=== PATIENT | female | born 1975 | race Caucasian/White ===

== ENCOUNTER 2016-12-27 18:43 | Observation (INO) | payer OTHER ==
[~2016-12-27] VITALS: Ht 167.6 cm; Wt 135.8 kg
[2016-12-27] VITALS (72 sets, daily range): BP systolic 128–156; BP diastolic 68–94; PULSE 62–65; TEMP 97.8; O2SAT 92–99
[~2016-12-27 18:43] MED LIST: AMOXICILLIN 8751 TAB PO; NAPROXEN500 M1 PO; NORCO 325 MG-51 TAB PO
[2016-12-27 20:16] LABS: BASO # 0.1 (0.0-0.2); BASO % 0.6 % (0.0-2.0); EOS # 0.2 (0.0-0.7); EOS % 2.3 % (0-4.0); GRAN # 5.8 (1.4-6.5); GRAN % 65.3 % (42.2-75.2); HEMATOCRIT 38.5 % (37.0-47.0); HEMOGLOBIN 12.7 g/dl (12.5-16.0); LYMPH # 2.3 (1.2-3.4); LYMPH % 25.3 % (20.0-51.0); MEAN CELL VOLUME 83 fl (80.0-100.0); MEAN CORPUSCULAR HEMOGLOBIN 27 pg (27.0-31.0); MEAN CORPUSCULAR HGB CONC 33 g/dl (33.0-37.0); MEAN PLATELET VOLUME 10.8 fl (7.4-10.4); MONO # 0.6 (0.1-0.6); MONO % 6.1 % (1.7-9.3); PLATELET COUNT 227 K/mm3 (130-400); RED BLOOD COUNT 4.63 M/mm3 (4.10-5.30); REDCELL DISTRIBUTION WIDTH-CV 13.5 % (11.5-14.5)
[2016-12-27 20:27] LABS: ADJUSTED CALCIUM 9.4 mg/dL (8.4-10.2); ALANINE AMINOTRANSFERASE 24 U/L (9-52); ALBUMIN 4.2 gm/dL (3.5-5.0); ALKALINE PHOSPHATASE 69 U/L (50-136); ANION GAP 10 mmol/L (7-16); BILIRUBIN,TOTAL 0.5 mg/dL (0.0-1.0); BLOOD UREA NITROGEN 17 mg/dL (7-17); CALCIUM 9.6 mg/dL (8.4-10.2); CARBON DIOXIDE 25 mmol/L (22-30); CHLORIDE 102 mmol/L (98-107); CREATININE, serum 0.87 mg/dL (0.52-1.25); GLUCOSE 98 mg/dL (74-106); POTASSIUM 3.8 mmol/L (3.4-5.0); SODIUM 137 mmol/L (137-145); TOTAL PROTEIN 7.7 gm/dL (6.4-8.2)
[2016-12-27 20:37] LABS: PROTHROMBIN TIME 10.6 SECONDS (9.7-12.8)
[2016-12-27 20:39] LABS: B-TYPE NATRIURETIC PEPTIDE 517 pg/mL (0-125); TROPONIN-I < 0.012 ng/mL (0.000-0.034)
[2016-12-27 20:40] LABS: PARTIAL THROMBOPLASTIN TIME 28.1 SECONDS (26.0-37.0)
[2016-12-27 23:44] LABS: CHOLESTEROL 176 mg/dL (120-200); HDL CHOLESTEROL 46 mg/dL; LDL CHOLESTEROL 112 mg/dL; TRIGLYCERIDE 90 mg/dL
[2016-12-27 23:56] LABS: TROPONIN-I < 0.012 ng/mL (0.000-0.034)
[2016-12-28] VITALS (510 sets, daily range): BP systolic 114–163; BP diastolic 67–86; PULSE 50–63; TEMP 97–97.8; O2SAT 64–100
[2016-12-28 02:43] LABS: PH 7 (5-8); SQUAMOUS EPITHELIAL 0-2 /hpf; URINE APPEARANCE Clear; URINE BACTERIA None Seen /hpf; URINE BILIRUBIN Negative (NEGATIVE); URINE BLOOD Negative (NEGATIVE); URINE COLOR Straw; URINE GLUCOSE Negative (NEGATIVE); URINE KETONE Negative (NEGATIVE); URINE RBC 0-2 /hpf; URINE UROBILINOGEN Negative (NEGATIVE); URINE WBC 0-2 /hpf
[2016-12-28 04:31] LABS: BASO % 0.4 % (0.0-2.0); EOS # 0.2 (0.0-0.7); EOS % 3.3 % (0-4.0); GRAN # 3.6 (1.4-6.5); GRAN % 52.6 % (42.2-75.2); HEMATOCRIT 35.8 % (37.0-47.0); HEMOGLOBIN 11.7 g/dl (12.5-16.0); LYMPH # 2.6 (1.2-3.4); LYMPH % 37.6 % (20.0-51.0); MEAN CELL VOLUME 84 fl (80.0-100.0); MEAN CORPUSCULAR HEMOGLOBIN 27 pg (27.0-31.0); MEAN CORPUSCULAR HGB CONC 33 g/dl (33.0-37.0); MEAN PLATELET VOLUME 10.6 fl (7.4-10.4); MONO # 0.4 (0.1-0.6); MONO % 5.7 % (1.7-9.3); PLATELET COUNT 196 K/mm3 (130-400); RED BLOOD COUNT 4.26 M/mm3 (4.10-5.30); REDCELL DISTRIBUTION WIDTH-CV 13.7 % (11.5-14.5); WHITE BLOOD COUNT 6.9 K/mm3 (4.8-10.8)
[2016-12-28 04:42] LABS: ANION GAP 8 mmol/L (7-16); BLOOD UREA NITROGEN 15 mg/dL (7-17); CALCIUM 8.8 mg/dL (8.4-10.2); CARBON DIOXIDE 25 mmol/L (22-30); CHLORIDE 104 mmol/L (98-107); CREATININE, serum 0.94 mg/dL (0.52-1.25); GLUCOSE 93 mg/dL (74-106); SODIUM 137 mmol/L (137-145)
[2016-12-28 04:53] LABS: TROPONIN-I < 0.012 ng/mL (0.000-0.034)
[2016-12-28] MEDS ORDERED: CATAPRES 0.1MG0.1 MG PO (14:39)
[2016-12-28] MEDS ORDERED: PRINZIDE 12.5 M1 TA1 PO (14:40)
== END 2016-12-28 16:44 | disposition home or self-care (01) ==
LOC: COL.ER 18:43 → ICU 21:42
PROVIDERS: Emergency Medicine; Family Medicine
DX: I16.0 Hypertensive urgency (principal); R07.9 Chest pain, unspecified; F17.210 Nicotine dependence, cigarettes, uncomplicated; E66.9 Obesity, unspecified; Z82.49 Family history of ischemic heart disease and other diseases of the circulatory system
CPT/HCPCS: 99223-AI; 99239; J2270; J2405; J7030; J7050; Q9967

== ENCOUNTER → 2016-12-29 | Outpatient (CLI) | payer OTHER ==
[~2016-12-29] VITALS: Ht 167.6 cm; Wt 135.2 kg
[~2016-12-29] MED LIST changes: +CATAPRES 0.1MG0.1 MG PO; +PRINZIDE 12.5 M1 TA1 PO
[2016-12-29 09:29] VITALS: BP 184/89; PULSE 57
== END ==
LOC: COL.CARD 09:01
DX: I10 Essential (primary) hypertension (principal); R07.9 Chest pain, unspecified
CPT/HCPCS: A9502